=== PATIENT | male | born 1955 | race Caucasian/White ===

== ENCOUNTER 2023-10-11 23:08 | Emergency (ER) | payer MEDICARE ==
[~2023-10-11] VITALS: Ht 170.2 cm; Wt 75.9 kg
[~2023-10-11 23:08] MED LIST: AMLO-257 PO; ASPI-1450 PO; EMPA10TA3 PO; ROSU20TA73 PO
[2023-10-11 23:10] VITALS: TEMP 97.4
[2023-10-12] MEDS ORDERED: COLC-3 PO (00:50)
[2023-10-12] MEDS ORDERED: TRAM50TA5 PO (00:51)
[2023-10-12 01:00] VITALS: BP 160/74; PULSE 57; RESP 16
[2023-10-12] MEDS: TraMADol HCL 50 MG TABLET PO ONE (01:08)
[2023-10-12] MEDS: MethylPREDNISolone SOD SUCC 125 MG/2 ML VIAL IVP ONE (01:27)
== END 2023-10-12 04:20 | disposition home or self-care (01) ==
LOC: EMS 23:10
DX: M10.9 Gout, unspecified (principal); E11.9 Type 2 diabetes mellitus without complications; I10 Essential (primary) hypertension; Z98.890 Other specified postprocedural states
CPT/HCPCS: 99283; 82962; 73610; 96374; J2919